=== PATIENT | male | born 1955 | race Caucasian/White ===

== ENCOUNTER 2018-04-21 05:13 | Day surgery (SDC) | payer BC, OTHER ==
[2018-04-21] MEDS ORDERED: ceFAZolin 2 GM/DEXTROSE 100 ML IV ONE (05:34)
[2018-04-21] MEDS ORDERED: LR 1,000 ML IV ONE (05:38)
--- NOTE | 2018-04-21 06:49 | PDANEPAE ---
ANE History of Present Illness right ankle scope/fusion ANE Past Medical History - Cardiovascular History Hx Hypertension: Yes Hx Arrhythmias: No Hx Chest Pain: No Hx Coronary Artery / Peripheral Vascular Disease: No Hx CHF / Valvular Disease: No Hx Palpitations: No Cardiovascular History Comment: HEART MURMUR SINCE . PCP MONITORS BP MEDS - Pulmonary History Hx COPD: No Hx Asthma/Reactive Airway Disease: No Hx Recent Upper Respiratory Infection: No Hx Oxygen in Use at Home: No Hx Sleep Apnea: Yes Sleep Apnea Screening Result - Last Documented: Positive Pulmonary History Comment: CENTRAL APNEA USE DEVICE INSTRUCTED TO BRING DOS. PNEUMONIA MULTIPLE TIMES - Neurologic History Hx Cerebrovascular Accident: No Hx Seizures: No Hx Dementia: No Neurologic History Comment: MIGRAINES. PERIPHERAL NEUROPATHY - Endocrine History Hx Diabetes: Yes Obesity: yes Endocrine History Comment: TYPE 2 ONLY TAKES JANUVIA BS WELL CONTROLLED AT THIS TIME - Renal History Hx Renal Disorders: No - Liver History Hx Hepatic Disorders: No - Neurological & Psychiatric Hx Hx Neurological and Psychiatric Disorders: No - Cancer History Hx Cancer: No - Congenital Disorder History Hx Congenital Disorders: No - GI History Hx Gastrointestinal Disorders: Yes Gastrointestinal History Comment: REFLUX - Other Health History Other Health History: VERY MILD DERMATITIS. INSTABILITY OF RT ANKLE. DDD. NEUROPATHY BOTH LEGS - Chronic Pain History Chronic Pain: Yes (RT ANKLE AND LOWER LUMBAR) - Surgical History Prior Surgeries: RT TRICEPS REPAIR 2015. RT SHLDR SCOPE 2008. TONSILLECTOMY. TROY KNEE SCOPE. ORIF RT FOREARM WITH POST HARDWARE REMVL 12/1977. ORIF RT FOREARM WITH BONE GRAFT AND HARDWARE. WITH POST HARDWARE REMVL 04/1978. LT ANKLE FX 1982. RT LEG SPIRAL FX 1993 ANE Review of Systems Review of systems is: negative Review of Systems: - Exercise capacity METS (RN): 4 METS ANE Patient History - Allergies Allergies/Adverse Reactions: amoxicillin Allergy (Verified 07/24/15 17:08) Hives clindamycin Allergy (Verified 07/24/15 17:08) Hives hydrocodone bitartrate [From Vicodin] Allergy (Verified 07/24/15 17:08) Anaphylaxis Opioids - Morphine Analogues Allergy (Verified 07/24/15 17:09) oxycodone HCl [From Percocet] Allergy (Verified 07/24/15 17:08) Anaphylaxis povidone-iodine [From Betadine] Allergy (Verified 04/14/18 14:40) propoxyphene napsylate [From Darvocet-N] Allergy (Verified 07/24/15 17:08) Anaphylaxis soap [From Betadine] Allergy (Verified 04/14/18 14:40) ITCH/RASH/INFECTION - Home Medications Home medications: home medication list seen and reviewed Home Medications: Armodafinil DAILY 04/14/18 [Last Taken 04/20/18] Atorvastatin Calcium HS 04/14/18 [Last Taken 04/20/18] CLONAZEPAM HS 04/14/18 [Last Taken 04/20/18] Cyclobenzaprine BID 04/14/18 [Last Taken 04/20/18] Divalproex ER HS 04/14/18 [Last Taken 04/20/18] Fluticasone Nasal PRN 04/14/18 [Last Taken 03/22/18] Gabapentin TID 04/14/18 [Last Taken 04/21/18] Herbals/Supplements -Info Only DAILY 04/14/18 [Last Taken 04/14/18] Januvia 100 MG (*) HS 04/14/18 [Last Taken 04/14/18] Losartan Potassium HS 04/14/18 [Last Taken 04/14/18] Metanx BID 04/14/18 [Last Taken 04/21/18] Metoprolol Succinate HS 04/14/18 [Last Taken 04/20/18] Omeprazole DAILY AT 6PM 04/14/18 [Last Taken 04/20/18] Sildenafil Citrate PRN 04/14/18 [Last Taken Unknown] Triamcinolone 0.1% PRN 04/14/18 [Last Taken 04/21/18] Verapamil HS 04/14/18 [Last Taken 04/20/18] ZOLMItriptan PRN 04/14/18 [Last Taken Unknown] - NPO status NPO Since - Liquids (Date): 04/21/18 NPO Since - Liquids (Time): 03:30 NPO Since - Solids (Date): 04/20/18 NPO Since - Solids (Time): 20:00 - Smoking Hx Smoking Status: Never smoked - Family Anes Hx Family Hx Anesthesia Complications: NONE ANE Labs/Vital Signs - Labs Result Diagrams: 04/21/18 06:19 - Vital Signs Blood Pressure: 134/94 Heart Rate: 70 Respiratory Rate: 16 O2 Sat (%): 94 Height: 175.26 cm Weight: 105.233 kg ANE Physical Exam - Airway Neck exam: FROM Mallampati Score: Class 3 Mouth exam: small mouth opening - Pulmonary Pulmonary: no respiratory distress - Cardiovascular Cardiovascular: regular rate and rhythym - ASA Status ASA Status: III ANE Anesthesia Plan Anesthesia Plan: GA w LMA Regional Anesthesia: adductor canal FNB, popliteal SNB, POPC/PSR
[2018-04-21] MEDS ORDERED: BUPIVACAINE 0.5% 30 ML SDV ONE (06:57)
[2018-04-21] MEDS ORDERED: fentaNYL 100 MCG/2 ML INJ ONE ×2 (07:01)
[2018-04-21] MEDS ORDERED: PROPOFOL 200 MG/20 ML VIAL ONE ×2 (07:01)
[2018-04-21] MEDS ORDERED: MIDAZOLAM 2 MG/2 ML VIAL ONE (07:06)
[2018-04-21] MEDS ORDERED: ROPIVACAINE HCL 150 MG/30 ML INJ ONE (07:07)
--- NOTE | 2018-04-21 07:07 | PDHPUP ---
History & Physical Update H&P update statement: This history and physical update is based on an assessment of the patient which was completed after admission or registration (within 24 hours), but prior to the surgery/procedure. H&P update: H&P reviewed & patient examined, no change in patient's condition since H&P completed
[2018-04-21] MEDS ORDERED: LIDOCAINE 2% 5 ML SDV ONE (07:08)
[2018-04-21] MEDS ORDERED: HEPARIN 1000 UNIT/1 ML MDV ONE (07:30)
[2018-04-21] MEDS ORDERED: HEPARIN 10,000 UNIT/10 ML MDV (1,000 UNIT/ML) ONE (07:32)
[2018-04-21] MEDS ORDERED: ePHEDrine SULFATE 25 MG/5 ML SYR ONE (07:34)
[2018-04-21] MEDS ORDERED: IOPAMIDOL (ISOVUE-M 300) 15 ML VIAL ONE (07:35)
[2018-04-21] MEDS ORDERED: THROMBIN(HUM PLAS)/FIBRINOG/CA 5 ML VIAL TP ONE (08:19)
--- NOTE | 2018-04-21 08:46 | POSTANESTH ---
Post Anesthetic Evaluation Cardiovascular Status: Normal, Stable Respiratory Status: Normal, Stable Level of Consciousness/Mental Status: Mildly Sleepy, Arousable Pain Control: Adequate, Prn Tx Ordered Nausea/Vomiting Control: Adequate, Prn Tx Ordered Complications Possibly Related to Anesthesia: None Noted
[2018-04-21] MEDS ORDERED: ONDANSETRON 4 MG/2 ML VIAL ONE (08:58)
[2018-04-21] MEDS ORDERED: KETOROLAC 30 MG/1 ML SDV ONE (08:58)
[2018-04-21] MEDS ORDERED: DEXAMETHASONE 4 MG/ML VIAL ONE (08:58)
[2018-04-21] MEDS ORDERED: LR 500 ML IV PRN (09:30)
[2018-04-21] MEDS ORDERED: NALOXONE HCL 0.4 MG/ML INJ IVP PRN (09:30)
[2018-04-21] MEDS ORDERED: PROMETHAZINE HCL 25 MG/ML INJ IVP PRN (09:30)
[2018-04-21] MEDS ORDERED: ALBUTEROL 3 ML DEYVIAL IH PRN (09:30)
[2018-04-21] MEDS ORDERED: fentaNYL 100 MCG/2 ML INJ IVP PRN (09:30)
[2018-04-21] MEDS ORDERED: ACETAMINOPHEN 500 MG TAB PO PRN (09:30)
[2018-04-21] MEDS ORDERED: LABETALOL HCL 5 MG/ML 20 ML MDV IVP PRN (09:30)
[2018-04-21] MEDS ORDERED: ONDANSETRON 4 MG/2 ML VIAL IVP PRN (09:30)
--- NOTE | 2018-04-21 10:13 | POSTOPPROG ---
Post Op Note Date of Operation: 04/21/18 Surgeon: Cesar Ruff Single Pointed Operator: Macario Anesthesiologist: Keenan Anesthesia: GET(General Endotracheal) Pre-op Diagnosis: R ankle OLT, instability Post-op Diagnosis: same Indication: aboce Procedure: R ankle scope, tx OLT, elmer barbosa, 3rd h toe Inf/Abcess present in the surg proc area at time of surgery?: No EBL: Minimal
--- NOTE | 2018-04-21 10:14 | PDIAF ---
- Medication Management Discharge Medications: Medications to Continue on Transfer Armodafinil DAILY 04/14/18 [Last Taken 04/20/18] Atorvastatin Calcium HS 04/14/18 [Last Taken 04/20/18] CLONAZEPAM HS 04/14/18 [Last Taken 04/20/18] Cyclobenzaprine BID 04/14/18 [Last Taken 04/20/18] Divalproex ER HS 04/14/18 [Last Taken 04/20/18] Fluticasone Nasal PRN 04/14/18 [Last Taken 03/22/18] Gabapentin TID 04/14/18 [Last Taken 04/21/18] Herbals/Supplements -Info Only DAILY 04/14/18 [Last Taken 04/14/18] Januvia 100 MG (*) HS 04/14/18 [Last Taken 04/14/18] Losartan Potassium HS 04/14/18 [Last Taken 04/14/18] Metanx BID 04/14/18 [Last Taken 04/21/18] Metoprolol Succinate HS 04/14/18 [Last Taken 04/20/18] Omeprazole DAILY AT 6PM 04/14/18 [Last Taken 04/20/18] Sildenafil Citrate PRN 04/14/18 [Last Taken Unknown] Triamcinolone 0.1% PRN 04/14/18 [Last Taken 04/21/18] Verapamil HS 04/14/18 [Last Taken 04/20/18] ZOLMItriptan PRN 04/14/18 [Last Taken Unknown] Discharge Medications: Refer to the Discharge Home Medication list for PRN reason. - Orders Isolation Type: None Diet Recommendation: no restrictions on diet Diet Texture: Regular Texture Diet Equipment: [facility] [place] Additional Instructions: non wt bearing left leg ice elevate keep dry leave splint intact - Follow Up Care Current Providers and Referrals: Lalito Wick MD [Primary Care Provider] - Cesar Ruff MD [Medical Doctor] - follow up in 10 days
[2018-04-21 11:22] VITALS: BP 147/82
--- NOTE | 2018-04-21 12:38 | GOP ---
DATE OF OPERATION: 04/21/2018 SURGEON: Cesar Ruff MD PECAN GATHERER: Eulalio Sorto SA ANESTHESIA: General. PREOPERATIVE DIAGNOSIS: POSTOPERATIVE DIAGNOSIS: PROCEDURE PERFORMED: FINDINGS: SPECIMENS: None. ESTIMATED BLOOD LOSS: 5 mL. INDICATIONS: This is a male with significant ankle pain, who failed conservative management and elec adela to proceed with the above procedure. We discussed risks and benefits of operative intervention, and he elected proceed. Informed consent obtained. All questions were answered. DESCRIPTION OF PROCEDURE: He was marked preoperatively. We discussed risks of nonunion, malunion, continued pain, need for further treatment of the osteochondral lesion, need for cartilage grafting o f the osteochondral lesion, external hardware was K-wire, deformity recurrence, and he elects to proc eed. PROCEDURES: 1. Right ankle arthroscopy with extensive debridement. 2. Right ankle treatment of talar osteochondral bone lesion with bone graft and bone marrow aspirate as well as BioCartilage mixed with bone marrow aspirate. 3. A Holden osteotomy. 4. Lateral ankle ligament repair, Brostrom procedure. 5. Hammertoe repair. IMPLANTS: 1. Arthrex BioSync bone graft with mixed with bone marrow aspirate. 2. [employer]rex BioCartilage mixed with bone marrow aspirate with Episeal. 3. Two 7.0 mm headless compression screws from [employer]. 4. Two 2-9 PushLock. 5. 1.6 mm K-wire. COMPLICATIONS: None. DRAINS: None. CONDITION: Stable. DESCRIPTION OF PROCEDURE: He was marked preoperatively. He was taken to the operative suite, steril bull prepped and draped in the usual fashion. Time-out was performed verifying the patient, side, sit e, location with agreement of the team. I then 1st lateral position and prepped out the iliac crest. I introduced the trocar into the posterior crest and aspirated 60 cc of bone marrow aspirate. This was spun down for bone marrow aspirate concentrate used later in the procedure. He was then reposit ioned on the pompa bag. All bony problems were padded. Sterile prep and draped in normal fashion. A 2nd time-out was performed verifying the patient, site, side, location, and agreed on by members of the team. I inflated the tourniquet. I insufflated the joint. I introduced the joint. It had sign ificant synovitis. Established lateral working portal with skin incision only good. Debrided the sy novitis and cleaned out his medial lateral gutters as well as posterior gutter with a shaver. I then used a bur to remove the anterior bony osteophyte. I was able to easily find the osteochondral lesi on. The cartilage cap was not intact. There was flaps of loose cartilage. I debrided these back to a stable edge and made an approximately 1.5 cm osteochondral lesion. Made decision to the bioplasty and use BioCartilage bone graft from the cartilage. Cap was not intact. I drilled into the lesion a nd then placed the trocar for the interosseous bioplasty in this, and then was able to visualize this fluoroscopically and injected a mixture of BioSync bone graft, bone marrow aspirate, and a small josey unt of the contrast into this to be able to visualize this going into the bone. I felt I got a good fill in the area of his edema and his MRI based on lateral and AP fluoroscopic images on direct imagi ng. I then placed a small amount of additional bone graft in the bed lesion and then placed BioCarti karina over this after drying out the joint and then placed Evicel over this and let this dry. This en ded this portion of the case. I then made an incision over the heel, dissected down to bone. I used a saw to perform a Holden osteotomy and take out a small lateral wedge, closed this down, placed guid e pins across this, placed two 7-0 headless compression screws, holding this in good position. I the n made incision over the fibula and dissected down nicely the lateral ankle ligaments, dissected thes e off the fibula, paying particular attention to the CFL. I protected the peroneals. I covered the se with #2 FiberWire. I then drilled and used two 9 PushLock to bring this to bone tightening, both the CFL and ATFL. Over sewed this with #1 Vicryl. I then made the incision over the 3rd hammertoe, dissected down. There was significant evidence of old gout in this. I then was able to resect this with a saw and then placed a K-wire in antegrade, then retrograde across this, holding this for strai ght for fusion. I thoroughly irrigated. Final images taken, was closed with 0 Vicryl, 2-0 Vicryl, 3 -0 Quill, and nylon. He was taken to PACU in stable condition. /[id number]/MODL
== END 2018-04-21 11:40 | disposition home or self-care (01) ==
LOC: FSGY 05:13
PROVIDERS: ATTEND Orthopaedic Surgery
DX: M25.371 Other instability, right ankle (principal); M93.20 Osteochondritis dissecans of unspecified site; M20.41 Other hammer toe(s) (acquired), right foot; M65.871 Other synovitis and tenosynovitis, right ankle and foot; M21.6X1 Other acquired deformities of right foot; G62.9 Polyneuropathy, unspecified; I10 Essential (primary) hypertension; G47.31 Primary central sleep apnea; G43.909 Migraine, unspecified, not intractable, without status migrainosus
CPT/HCPCS: C1713; C1762; J0690; J1100; J1644; J1885; J2250; J2405; J2704; J2795; J3010; Q9967